=== PATIENT | female | born 1960 | race Caucasian/White ===

== ENCOUNTER 2018-12-02 09:19 | Emergency (ER) | payer OTHER ==
[~2018-12-02] VITALS: Ht 157.5 cm; Wt 90.9 kg
[~2018-12-02 09:19] MED LIST: FOLI-74 PO; LEVO125 PO; OMEP20 PO
[2018-12-02] MEDS ORDERED: BECL10.6 IH (09:27)
[2018-12-02] MEDS ORDERED: BUDE10.2 IH (09:27)
[2018-12-02] MEDS ORDERED: FLUT16H NASAL (09:27)
[2018-12-02] MEDS ORDERED: CYCLOBENZAPRINE HCL 10 MG TABLET PO ONE (10:30)
[2018-12-02] MEDS ORDERED: LIDOCAINE 5% TRANSDERMAL PATCH TD ONE (11:15)
[2018-12-02] MEDS ORDERED: IBUPROFEN 800 MG TABLET PO ONE (11:30)
[2018-12-02 12:10] VITALS: BP 138/97
== END 2018-12-02 13:02 | disposition home or self-care (01) ==
LOC: EMS 09:20
DX: S13.9XXA Sprain of joints and ligaments of unspecified parts of neck, initial encounter (principal); E03.9 Hypothyroidism, unspecified; K21.9 Gastro-esophageal reflux disease without esophagitis; Z79.899 Other long term (current) drug therapy; X58.XXXA Exposure to other specified factors, initial encounter; Y93.89 Activity, other specified; Y92.89 Other specified places as the place of occurrence of the external cause; Y99.8 Other external cause status
CPT/HCPCS: 72040